=== PATIENT | male | born 1985 | race Caucasian/White ===

== ENCOUNTER 2023-08-07 08:51 | Outpatient (CLI) | payer SELFPAY | END 2023-08-07 08:52 | disposition home or self-care (01) | PROVIDERS: PCP Family Medicine; Visit Provider Internal Medicine | DX: R07.89 Other chest pain (principal) | CPT/HCPCS: 80053; 84484; 85379 ==

== ENCOUNTER 2023-12-25 22:44 | Emergency (ER) | payer OTHER, SELFPAY ==
[2023-12-25 22:46] VITALS: BP 155/104; PULSE 96; RESP 18; TEMP 37.1; O2SAT 98
--- NOTE | 2023-12-25 23:12 | XR_ITS ---
Final Report Patient: WILI GORDON Facility:?[facility] Patient ID:?[id number] Site Patient ID:?[id number]. Site :?[id number] Study:?XRay Chest 2 view-12/25/2023 11:25:05 PM Ordering Physician:Carson Chao Final Report: INDICATION: Chest pain. TECHNIQUE: Chest 2 views. COMPARISON: January 19, 2022. FINDINGS: Cardiovascular and mediastinum: Heart size and vasculature are normal in caliber and appearance. Lungs and pleural spaces: Lungs are clear. No sign of infiltrate or mass. No sign of pleural effusion. No pneumothorax. Bones and soft tissues: No significant findings. IMPRESSION: No acute or significant findings. Dictated by Franklyn Gumzan MD @ 12/25/2023 11:28:21 PM (Electronic Signature)
--- NOTE | 2023-12-25 23:26 | ED_ITS ---
HPI - General Adult General Chief complaint: Chest Pain Stated complaint: Chest Pain Time Seen by Provider: 12/25/23 22:48 Source: patient Mode of arrival: ambulatory Limitations: no limitations History of Present Illness HPI narrative: 38-year-old male presents the emergency department for evaluation of epigastric/left lower chest pain. This is been intermittent but ongoing issue for the last 2 months. Reports that it tends to be worse after eating. He does take a PPI daily, omeprazole 20 mg. Tonight, the pain started about 3-1/2 hours prior to arrival when he was getting something out of the freezer. Reports that the pain suddenly became sharp and is now doing much better, it lasted a couple of hours but is now improving. He did not try any home treatments like Tylenol, ibuprofen or Tums. No nausea or vomiting. He thinks that it may be diet related. He admits that he drinks 12-15 shots of vodka daily and typically washes this down with energy drinks like red bull. He admits to self medicating his anxiety problems, does not see a physician. He actually has good insight into this and is very forthcoming. He reports a history of Adderall dependence for 10+ years, has not been using this for the last couple of years. He admits that he used alcohol is a transition off of Adderall and that this is not healthy for him. He has not sought treatment for this. He has not spoke with the physician regarding other ways to manage his anxiety. He denies shortness of breath associated with the chest pain today but states that sometimes when he uses marijuana through his vape device, he has a burning in his chest but it is brief. No productive cough, no fever. No nausea or vomiting. Appetite has been normal. No changes in stools, no trauma. Pain is ?numbing in nature and was initially sharp and is now mild, dull and achy and more similar to the pain he has been experiencing over the last few months. He reports that he has had this worked up once in the past with an x-ray and this was not revealing. The provider that time thought that it may be muscular in nature and he was given a 5 day course of prednisone which did not improve his symptoms. No prior endoscopy. No family history of early coronary artery disease or arrhythmia. He has no personal history of asthma, cardiac problems or other long-term health issues. Past medical history benign per his report. He does struggle with ongoing anxiety and has a history of Adderall dependence, no longer using that medication. He does smoke tobacco and drinks 12-15 shots of vodka daily as stated above. ROS is notable for the chest symptoms as described above and some ongoing GI issues, otherwise denies times 12 systems. Related Data Home Medications Medication Instructions Recorded Confirmed No Known Home Medications 12/25/23 12/25/23 Allergies Allergy/AdvReac Type Severity Reaction Status Date / Time Penicillins Allergy Mild Cough Verified 12/25/23 22:49 PFSH [facility] Medical History Chest wall pain ?R07.89 - Other chest pain (ICD-10) Social History Smoking Status: Heavy tobacco smoker What tobacco products do you use: cigarettes Smoking packs per day: 0.5 Smoking cigarettes per day: 10.0 Years smoked: 7 Smoking pack-years: 3.50 Do you use any of these nicotine containing products: E-Cigarettes and Vaping Products Second hand tobacco smoke exposure: No How often do you have a drink containing alcohol: 4 or more times a week How many standard drinks containing alcohol do you have on a typical day: 10 or more How often do you have six or more drinks on one occasion: Daily or almost daily AUDIT-C Alcohol total score: 12 Non-prescribed substance use: marijuana (any form) Exam Const: Vital Signs, click to edit/add: Vital Signs - 24 hr 12/25/23 22:46 Temperature 98.7 F Pulse Rate [Pulse Oximeter] 96 Respiratory Rate 18 Blood Pressure [Ri ght Upper Arm] 155/104 H Pulse Oximetry 98 Oxygen Delivery Me thod Room Air Documenting provider has reviewed patient's vital signs: yes Common normals: no apparent distress and alert General appearance: cooperative and well kempt HENMT: Common normals: normocephalic Head and scalp: normocephalic Face and sinus: normal facial exam Mouth: oral and palatal mucosa normal Throat: posterior oropharynx normal Eye: Common normals: conjunctivae normal General eye: normal appearance of both eyes Conjunctiva: conjunctiva(e) normal Neck & C-Spine: Common normals: full ROM and no lymphadenopathy Chest: Common normals: inspection of chest normal and palpation of chest normal Resp: Common normals: normal respiratory effort, no use of accessory muscles and clear to auscultation bilaterally Effort & inspection: able to speak in complete sentences Auscultation: clear to auscultation bilaterally Cardio: Common normals: regular rate, regular rhythm, S1 normal heart sound, S2 normal heart sound and no murmurs Rate: regular rate Rhythm: regular rhythm Heart sounds: S1 normal and S2 normal GI: Common normals: Normal to inspection, nondistended, normoactive bowel sounds present, soft to palpation, non-tender, no hepatosplenomegaly and no masses Palpation: soft and no hepatosplenomegaly Extremity: Common normals: normal to inspection, normal capillary refill and no pedal edema Neuro: Sensorium/orientation: alert Speech: speech normal Motor exam: no tremor noted and no movement abnormalities noted Psych: Common normals: speech normal Appearance: well kempt Attitude: engaged Activity/motor behavior: appropriate eye contact Speech: normal speech Mood and affect: euthymic mood Insight: insight good Judgement: judgment good Skin: Common normals: no rashes or lesions noted General skin exam: no rashes or lesions noted Course Course ED Course: Chest pain starting 3-1/2 hours prior to arrival, improving. Differential diagnosis includes cardiac process, acute coronary syndrome, pneumothorax, esophageal spasm, esophagitis, gastritis, alcohol induced or otherwise, anxiety, musculoskeletal problem. Symptoms are improving significantly. Will have an EKG, chest x-ray, basic labs. I did start counseled the patient that I am concerned about his drinking and how he is choosing to self medicate treatment of his anxiety. Recommended trial of famotidine, Maalox and Carafate while we await lab results. He was agreeable to this. Would like to check liver function to so I can have some data to help with counseling regarding his alcohol use. Will be on a satellite project site monitor, await findings. Reevaluation(s) Time of Reevaluation #1: 00:21 Reevaluation #1: Patient states that his symptoms were stable from my evaluation which is still markedly better than prior to the ED. he is uncertain if the medications helped. We discussed the mild abnormalities with his liver. He also tells me that he is taking ibuprofen 600 mg every morning which is certainly contributing to additional possible risk factors for gastritis. We discussed dietary changes including cutting down on alcohol, elimination of energy drinks and switching from ibuprofen to potentially Tylenol for the mild chronic neck pain. Patient will add famotidine 20 mg once daily to his omeprazole, alternating time of day for each of those. He will do this for the next 6 weeks while eliminating the ibuprofen, energy drinks and massively cutting down slowly on his alcohol, recommended schedule discussed and he verbalizes understanding and agreement. If he has not noted marked improvement after 6 weeks, he will make a follow-up appoint with his primary care doctor to discuss further testing and workup. All questions answered, alarm symptoms reviewed. Vital Signs Vital signs: Initial Vital Signs Temperature 98.7 F 12/25/23 22:46 Temperature Source Temporal Artery Scan 12/25/23 22:46 Pulse Rate 96 12/25/23 22:46 Respiratory Rate 18 12/25/23 22:46 Blood Pressure 155/104 H 12/25/23 22:46 Blood Pressure Mean 121 H 12/25/23 22:46 Blood Pressure Position Sitting 12/25/23 22:46 Pulse Oximetry 98 12/25/23 22:46 Oxygen Delivery Method Room Air 12/25/23 22:46 Vital Signs Temperature 98.7 F 12/25/23 22:46 Pulse Rate 96 12/25/23 22:46 Respiratory Rate 18 12/25/23 22:46 Blood Pressure 155/104 H 12/25/23 22:46 Pulse Oximetry 98 12/25/23 22:46 Oxygen Delivery Method Room Air 12/25/23 22:46 Temperature 98.7 F 12/25/23 22:46 Pulse Rate 96 12/25/23 22:46 Respiratory Rate 18 12/25/23 22:46 Blood Pressure 155/104 H 12/25/23 22:46 Pulse Oximetry 98 12/25/23 22:46 Oxygen Delivery Method Room Air 12/25/23 22:46 Medical Decision Making Lab Data Lab results reviewed: Yes I reviewed the patient's lab results Lab results narrative: Reassuring except mild elevation of liver function tests, not unexpected based on his alcohol history. Labs: Lab Results 12/25/23 12/25/23 Range/Units 23:12 23:30 WBC 9.19 (4.50-11.00) K/uL RBC 5.33 (4.30-5.90) m/uL Hgb 16.1 (13.5-17.5) gm/dL Hct 46.7 (37.0-53.0) % MCV 88 (80-100) fL MCH 30 (26-34) pg MCHC 35 (32-36) gm/dL RDW Coeff of Lori 12.3 (11.5-15.5) % Plt Count 240 (140-440) K/uL Neut % (Auto) 72.5 H (42.0-72.0) % Lymph % (Auto) 18.6 L (20-44) % [place] % (Auto) 6.3 (0.0-11.0) % Eos % (Auto) 1.2 (0.0-7.0) % Baso % (Auto) 0.2 (0.0-3.0) % Neut # (Auto) 6.70 (1.7-7.0) K/uL Lymph # (Auto) 1.70 (0.90-2.90) K/uL [place] # (Auto) 0.60 (0.00-0.90) K/UL Eos # (Auto) 0.11 (0.00-0.50) K/uL Baso # (Auto) 0.02 (0.00-0.30) K/uL Abs Immat Gran (auto) 0.11 (0.00-0.30) K/uL Imm/Tot Granulo (auto) 1.2 % Sodium 135 (135-149) mmol/L Potassium 4.3 (3.6-5.1) mmol/L Chloride 101 (96-114) mmol/L Carbon Dioxide 27 (20-32) mmol/L Anion Gap 7 (7-15) mEq/L BUN 13 (5-24) mg/dL Creatinine 1.3 (0.5-1.5) mg/dL Estimated Creat Clear 80.45 Estimated GFR 71 ml/min Glucose 124 H (60-115) mg/dL Calcium 9.6 (8.4-10.6) mg/dL Total Bilirubin 0.7 (0.1-1.5) mg/dL AST 51 H (12-35) U/L ALT 90 H (4-50) U/L Alkaline Phosphatase 78 (40-150) U/L C-Reactive Protein < 0.5 L (0.5-1.0) mg/dL NT-Pro-B Natriuret Pep < 20 pg/mL Total Protein 8.3 (6.0-8.3) g/dL Albumin 4.9 (3.3-5.0) g/dL POC Troponin I 0.00 L (0.01-0.04) ng/ml Imaging Data Chest x-ray: Attestation: I have reviewed the pertinent imaging results. My impression: Normal chest x-ray Radiologist's impression: IMPRESSION: No acute or significant findings. ECG Data Attestation: I personally reviewed and interpreted this ECG as follows: Prior ECG tracings: available for review (Comparison August 28) Interpretation: Normal sinus rhythm, rate 96. Normal intervals and axis. No significant ST or T-wave abnormalities, good R-wave progression, no left ventricular hypertrophy. Normal EKG. Discharge Plan Discharge Clinical Impression: Chronic gastritis Patient Disposition: Home, Self-Care Condition: Improved Instructions: Diet for Stomach Ulcers and Gastritis (ED) Additional Instructions: I agree with your thoughts that your chest pain is related to chronic irritation of the stomach. As we discussed, alcohol, energy drinks and the ibuprofen that you use are all playing a factor. The energy drinks are a huge factor and I would like for you to eliminate those 1st. Consider switching to 1000 mg of Tylenol daily instead of the ibuprofen. As we discussed, cutting down on the alcohol is necessary. Your likely to continue to struggle with anxiety and it may worsen while you are reducing your alcohol. I would recommend that you reduce the alcohol by about 25% every 5 days, tapering off of this over the next 3 weeks. Continue using your omeprazole once daily. I would also recommend that you added famotidine which is an yyhb-ygh-qhsyutl stomach acid medicine once daily as well. Take 1 of them in the morning and the other medication in the evening. It should not matter which medicine you use each way. Spreading them out over the course of the day is often more beneficial. I cannot stress enough how your dietary changes will be more helpful than the medications. Give this 6 weeks with the above instructions. If you are not markedly better, I want you to make a follow-up in the clinic with a primary care doctor to discuss additional testing such as H pylori bacterial testing, celiac testing and or to consider doing an endoscopy. All testing on your heart, lungs and other vital organs was normal today. The only abnormality was a mild inflammation of the liver but it is consistent with an overuse of alcohol pattern. Activity Level: No Restrictions Discharge Diet: Regular Prescriptions: No Action No Known Home Medications Follow Up/Referrals: Jimmie Castro MD [Primary Care Provider] - Stand Alone Forms: [employer] Info Instructions
[2023-12-25 23:34] LABS: Basophils Absolute Auto 0.02 K/uL (0.00-0.30); Basophils Percent Auto 0.2 % (0.0-3.0); Eosinophils Absolute Auto 0.11 K/uL (0.00-0.50); Eosinophils Percent Auto 1.2 % (0.0-7.0); Hematocrit 46.7 % (37.0-53.0); Hemoglobin* 16.1 gm/dL (13.5-17.5); Immature Granulocytes Abs Auto 0.11 K/uL (0.00-0.30); Immature Granulocytes Pct Auto 1.2 %; Lymphocytes Percent Auto 18.6 % (20-44); Mean Corpuscular HGB Conc 35 gm/dL (32-36); Mean Corpuscular Hemoglobin 30 pg (26-34); Mean Corpuscular Volume 88 fL (80-100); Monocytes Percent Auto 6.3 % (0.0-11.0); Neutrophils Percent Auto 72.5 % (42.0-72.0); Platelet Count* 240 K/uL (140-440); RDW Coefficient of Variation % 12.3 % (11.5-15.5); Red Blood Count 5.33 m/uL (4.30-5.90); White Blood Count* 9.19 K/uL (4.50-11.00)
[2023-12-25 23:39] LABS: Slide Review Reflex No
[2023-12-25 23:44] LABS: Albumin* 4.9 g/dL (3.3-5.0); Chloride* 101 mmol/L (96-114); Sodium* 135 mmol/L (135-149)
[2023-12-25 23:45] LABS: Potassium* 4.3 mmol/L (3.6-5.1)
[2023-12-25 23:47] LABS: Alkaline Phosphatase* 78 U/L (40-150); Anion Gap 7 mEq/L (7-15); Aspartate Amino Transferase* 51 U/L (12-35); Bilirubin Total* 0.7 mg/dL (0.1-1.5); Carbon Dioxide* 27 mmol/L (20-32); Creatinine* 1.3 mg/dL (0.5-1.5); Est. Creatinine Clearance* 80.45; Estimated Glomerular Filt Rate 71 ml/min; Total Protein* 8.3 g/dL (6.0-8.3)
[2023-12-25 23:48] LABS: Alanine Aminotransferase* 90 U/L (4-50); Blood Urea Nitrogen* 13 mg/dL (5-24); Calcium* 9.6 mg/dL (8.4-10.6); Glucose* 124 mg/dL (60-115)
--- OUTSIDE RECORDS SUMMARY | 2023-12-25 23:52 | XMS_ITS | Referral Summary ---
Author Name Unknown Organization [facility] Address [address] [place] [address] Care Team Providers Care Director Of Restaurant Name Role Phone No Ref-Primary, Physician Primary Care Provider Pio Farias PA-C Unavailable + [phone] Allergies Active Allergy Reactions Criticality Noted Date Comments Penicillins 01/30/2022 Medications Medication Sig Dispensed Refills Start Date End Date Status gabapentin (NEURONTIN) 100 MG capsuleIndications:Pa shawanda disorder without agoraphobia Take 1 capsule (100 mg) by mouth 3 times daily as needed for other (anixety) 30 capsule 0 03/02/2022 Active propranolol ER (INDERAL LA) 60 MG 24 hr capsuleIndications:Be nign essential hypertension Take 1 capsule (60 mg) by mouth daily 30 capsule 0 03/02/2022 Active Active Problems Problem Noted Date Diagnosed Date Benign essential hypertension 03/02/2022 Attention deficit disorder 05/15/2011 Panic disorder without agoraphobia 04/14/2010 Immunizations Name Administration Dates Next Due MMR 03/26/1996 TDAP (Adacel,Boostrix) 12/26/2011 Td (Adult), Adsorbed 06/15/2001,03/26/1996 Social History Tobacco Use Types Packs/Day Years Used Date Smoking Tobacco: Every Day Smokeless Tobacco: Never Tobacco Cessation:Counseling Given: No Alcohol Use Standard Drinks/Week Comments Yes 0 (1 standard drink = 0.6 oz pur e alcohol) PHQ-2 Answer Date Recorded PHQ-2 Score 6 03/02/2022 Adolescent Education Answer Date Record ed Getting School Help Needed Not on file 08/13 Sex and Gender Information Value Date Recorded Sex Assigned at Not on file Gender Identity Not on file Sexual Orientation Not on file Last Filed Vital Signs Vital Sign Reading Time Taken Comments Blood Pressure 128/98 02/07/2022 9:11 AM CDT Pulse 98 02/07/2022 9:01 AM CDT Temperature 36.8 ??C (98.2 ??F) 02/07/2022 9:01 AM CD T Respiratory Rate 17 02/07/2022 9:01 AM CDT Oxygen Saturation 99% 02/07/2022 9:01 AM CDT Inhaled Oxygen Concentration - - Weight 92.5 kg (204 lb) 03/02/2022 4:47 PM CDT Height 180.3 cm (5' 11) 02/07/2022 9:01 AM CDT Body Mass Index 28.45 02/07/2022 9:01 AM CDT Plan of Treatment Not on file Care Teams Director Of Restaurant Relationship Specialty Start Date End Date No Ref-Primary, Physician PCP - General 01/30/22 Pio Farias PA-C [id number] [place] [address] Assigned PCP 01/27/22
--- OUTSIDE RECORDS SUMMARY | 2023-12-25 23:52 | XMS_ITS | Encounter Summary ---
Author Name Unknown Organization [facility] Address [address] [place] [address]. [place] [address] Care Team Providers Care Core Carrier Name Role Phone No Ref-Primary, Physician Primary Care Provider Pio Farias PA-C Unavailable + [phone] Encounter Details Date Type Department Care Team (Late st Contact Info) Description 01/31/2022 Documentation Only INTERFACED REPORT Unknown, Provider Social History Tobacco Use Types Packs/Day Years Used Date Smoking Tobacco: Never Assessed Sex and Gender Information Value Date Recorded Sex Assigned at Not on file Gender Identity Not on file Sexual Orientation Not on file COVID-19 Exposure Response Date Recorded In the last month, have you been in contact with someone who was confirmed or suspected to have Coronavirus / COVID-19? No / Unsure 01/30/2022 8:06 PM CDT documented as of this encounter Plan of Treatment Not on file documented as of this encounter Visit Diagnoses Not on filedocumented in this encounter Care Teams Core Carrier Relationship Specialty Start Date End Date No Ref-Primary, Physician PCP - General 01/30/22 Pio Farias PA-C [id number] [place] [address] Assigned PCP 01/27/22 documented as of this encounter
--- OUTSIDE RECORDS SUMMARY | 2023-12-25 23:52 | XMS_ITS | Clinical Summary ---
Author Name Unknown Organization [facility] Address [address] [place] [id number] Care Team Providers Care E Commerce Manager Name Role Phone No Ref-Primary, Physician Primary Care Provider Pio Farias PA-C Unavailable + [phone] Allergies Active Allergy Reactions Criticality Noted Date [...] TDAP (Adacel,Boostrix) 12/26/2011 Td (Adult), Adsorbed 06/15/2001,03/26/1996 Family History Medical History Relation Comments Cerebrovascular Disease Maternal Grandfather Relation Status Comments Father Alive Maternal Grandfather Mother Alive Social History Tobacco Use Types Packs/Day Years [...] 02/07/2022 9:01 AM CDT Plan of Treatment Health Maintenance Due Date Last Done Comments ADVANCE CARE PLANNING 1985 HEPATITIS B IMMUNIZATION (1 of 3 - 3-dose series) 1985 COVID-19 Vaccine (#1) 06/04/1984 Pneumococcal Vaccine: Pediatrics (0 to 5 Years) and At-Risk Patients (6 to 64 Years) (1 of 2 - PCV) 1989 HIV SCREENING 1998 HEPATITIS C SCREENING 2001 DTAP/TDAP/TD IMMUNIZATION (4 - Td or Tdap) 12/26/2021 12/26/2011, 06/15/2001, 03/26/1996 YEARLY PREVENTIVE VISIT 02/07/2023 02/07/2022 (Decli shoaib) ANNUAL REVIEW OF HM ORDERS 03/02/2023 03/02/2022 INFLUENZA VACCINE (#1) 2023 PHQ-2 (once per calendar year) 2023 03/02/2022, 03/02/2022 LIPID 2023 GLUCOSE 01/30/2025 01/30/2022, 11/04/2009 HPV IMMUNIZATION Aged Out No longer e ligible based on patient's age to complete this topic IPV IMMUNIZATION Aged Out No longer e ligible based on patient's age to complete this topic MENINGITIS IMMUNIZATION Aged Out No l onger eligible based on patient's age to complete this topic RSV MONOCLONAL ANTIBODY Aged Out No l onger eligible based on patient's age to complete this topic Care Teams E Commerce Manager Relationship Specialty Start Date End Date No Ref-Primary, Physician PCP - General 01/30/22 Pio Farias PA-C [id number] [address] Assigned PCP 01/27/22
[2023-12-25 23:54] LABS: C Reactive Protein* < 0.5 mg/dL (0.5-1.0)
[2023-12-25 23:59] LABS: NT Pro B Type NatriureticPept* < 20 pg/mL
== END 2023-12-26 00:41 | disposition home or self-care (01) ==
PROVIDERS: Emergency Provider Family Medicine; PCP Family Medicine
DX: K29.50 Unspecified chronic gastritis without bleeding (principal)
CPT/HCPCS: 36415; 71046; 80053; 83880; 84484; 85025; 86140; 93005; 99284; 99285